=== PATIENT | female | born 1935 | race Caucasian/White ===

== ENCOUNTER 2016-11-06 | Outpatient (CLI) | payer MEDICARE, OTHER | END 2016-11-06 04:45 | disposition critical access hospital (66) | CPT/HCPCS: A0425; A0427 ==

== ENCOUNTER 2016-11-06 04:55 | Inpatient (IN) | payer MEDICARE, OTHER ==
[2016-11-06] MEDS ORDERED: PROPOFOL 200 MG/20 ML VIAL IVP ONE (05:06)
[2016-11-06] MEDS ORDERED: ETOMIDATE 40 MG/20 ML VIAL IVP ONE (05:06)
[2016-11-06] MEDS ORDERED: PROPOFOL 1000 MG/100 ML 100 ML IV ONE (05:06)
[2016-11-06] MEDS ORDERED: PIPERACILLIN/TAZOBACTAM 4.5 GM in SODIUM CHLORIDE 0.9% MINIBAG 100 ML IV STA (05:36)
[2016-11-06] MEDS ORDERED: VANCOMYCIN INJ 1 GM in SODIUM CHLORIDE 0.9% 250 ML IV STA (05:36)
[2016-11-06] MEDS ORDERED: VECURONIUM 10 MG VIAL ONE (05:45)
[2016-11-06] MEDS ORDERED: ROCURONIUM 50 MG/5 ML VIAL IVP ONE (05:46)
[2016-11-06] MEDS ORDERED: VANCOMYCIN 1 GM VIAL ONE (05:47)
[2016-11-06] MEDS ORDERED: PROPOFOL 1000 MG/100 ML 100 ML IV STA (05:54)
[2016-11-06] MEDS ORDERED: PROPOFOL 200 MG/20 ML VIAL IVP STA (05:54)
[2016-11-06] MEDS ORDERED: ROCURONIUM 50 MG/5 ML VIAL IVP STA (05:56)
[2016-11-06] MEDS ORDERED: ALBUTEROL NEB 2.5 MG/3 ML INH ONE (06:09)
[2016-11-06] MEDS ORDERED: CALCIUM CHLORIDE ABBOJECT 1000MG/10 ML SYRINGE IVP STA (06:41)
[2016-11-06] MEDS ORDERED: SODIUM CHLORIDE 0.9% 500 ML IV ONE ×2 (06:44→08:50)
[2016-11-06] MEDS ORDERED: LEVOTHYROXINE 100 MCG VIAL IVP SCH (07:00)
[2016-11-06] MEDS ORDERED: VANCOMYCIN PER PHARMACY 1 GM in SODIUM CHLORIDE 0.9% 250 ML IV SCH (08:50)
[2016-11-06] MEDS ORDERED: ACETAMINOPHEN 325 MG TABLET PO PRN (08:50)
[2016-11-06] MEDS ORDERED: IPRATROPIUM/ALBUTEROL 3 ML NEB INH PRN (08:50)
[2016-11-06] MEDS ORDERED: HYDROmorphone 1 MG/ML SYRINGE IVP PRN (08:50)
[2016-11-06] MEDS ORDERED: SODIUM CHLORIDE FLUSH 0.9% 10 ML SYRINGE IVP PRN (08:50)
[2016-11-06] MEDS ORDERED: ONDANSETRON 4 MG/2 ML VIAL IVP PRN (08:50)
[2016-11-06] MEDS ORDERED: PROPOFOL 1000 MG/100 ML 100 ML IV SCH (08:50)
[2016-11-06] MEDS ORDERED: PANTOPRAZOLE 40 MG TABLET PO SCH (08:50)
[2016-11-06] MEDS ORDERED: SACCHAROMYCES BOULARDII 250 MG CAPSULE PO SCH (08:50)
[2016-11-06] MEDS ORDERED: ALBUTEROL NEB 2.5 MG/3 ML INH PRN (08:50)
[2016-11-06] MEDS ORDERED: SODIUM CHLORIDE 0.9% 1,000 ML IV SCH (08:50)
[2016-11-06] MEDS ORDERED: PIPERACILLIN/TAZOBACTAM 3.375 GM in SODIUM CHLORIDE 0.9% MINIBAG 100 ML IV ONE (09:00)
[2016-11-06] MEDS ORDERED: CHLORHEXIDINE GLUCONATE 15 ML UDC PO SCH (09:00)
[2016-11-06] MEDS ORDERED: PIPERACILLIN/TAZOBACTAM 3.375 GM in SODIUM CHLORIDE 0.9% MINIBAG 100 ML IV SCH (10:00)
[2016-11-06] MEDS ORDERED: SODIUM CHLORIDE FLUSH 0.9% 10 ML SYRINGE IVP SCH (14:00)
[2016-11-07] MEDS ORDERED: LEVOTHYROXINE 100 MCG VIAL IVP SCH (07:00)
[2016-11-07] MEDS ORDERED: VANCOMYCIN INJ 1 GM in SODIUM CHLORIDE 0.9% 250 ML IV SCH (08:00)
== END 2016-11-06 10:15 | disposition expired | DRG 871 ==
PROC: 5A1935Z Respiratory Ventilation, Less than 24 Consecutive Hours (ICD-10-PCS; principal; 2016-11-06)
DX: A41.9 Sepsis, unspecified organism (principal); J96.90 Respiratory failure, unspecified, unspecified whether with hypoxia or hypercapnia; R65.21 Severe sepsis with septic shock; J18.9 Pneumonia, unspecified organism; E03.9 Hypothyroidism, unspecified; R68.0 Hypothermia, not associated with low environmental temperature; I11.0 Hypertensive heart disease with heart failure; I50.9 Heart failure, unspecified; E11.9 Type 2 diabetes mellitus without complications; K52.9 Noninfective gastroenteritis and colitis, unspecified; J96.01 Acute respiratory failure with hypoxia; G93.41 Metabolic encephalopathy; N17.9 Acute kidney failure, unspecified; Z79.899 Other long term (current) drug therapy; E87.2 Acidosis; C7B.02 Secondary carcinoid tumors of liver; C7B.04 Secondary carcinoid tumors of peritoneum; N39.0 Urinary tract infection, site not specified; K72.90 Hepatic failure, unspecified without coma; E87.5 Hyperkalemia; I10 Essential (primary) hypertension; G31.84 Mild cognitive impairment of uncertain or unknown etiology; G62.9 Polyneuropathy, unspecified; F41.9 Anxiety disorder, unspecified; F32.9 Major depressive disorder, single episode, unspecified; M10.9 Gout, unspecified; Y95 Nosocomial condition; Z66 Do not resuscitate; Z85.060 Personal history of malignant carcinoid tumor of small intestine; Z90.49 Acquired absence of other specified parts of digestive tract; Z79.82 Long term (current) use of aspirin; Z92.21 Personal history of antineoplastic chemotherapy